=== PATIENT | male | born 1950 | race African-American/Black ===

== ENCOUNTER 2022-03-06 11:18 | Emergency (ER) | payer OTHER ==
[~2022-03-06] VITALS: Ht 172.7 cm; Wt 136.0 kg
[2022-03-06 11:23] VITALS: BP 109/61
[2022-03-06] MEDS ORDERED: ONDANSETRON HCL 4MG/2ML INJ IV STA (11:55)
[2022-03-06 13:02] LABS: BASOPHILS % 0.4 % (0.0-2.0); HEMOGLOBIN. 14.6 g/dL (14.0-18.0); LYMPHOCYTES % 16.5 % (20.0-50.0); MEAN CORPUSCULAR HEMOGLOBIN 29.1 pg (28.0-32.0); MEAN CORPUSCULAR VOLUME 89.7 fL (80.0-94.0); MEAN PLATELET VOLUME 9.2 fl (7.4-10.4); MONOCYTES % 5.6 % (2.0-8.0); NEUTROPHILS % 77.5 % (40.0-76.0); PLATELET 144 x1000/uL (130-400); RED BLOOD CELL COUNT 5.02 mill/uL (4.7-6.1); RED CELL DISTRIBUTION WIDTH 13.9 % (11.6-14.6)
[2022-03-06 13:07] LABS: CHLORIDE 108 mEq/L (98-107)
[2022-03-06 13:18] LABS: ETHANOL BLOOD < 10 mg/dL
[2022-03-06 14:34] LABS: CLARITY URINE CLOUDY (CLEAR); COLOR URINE YELLOW (YELLOW); KETONES URINE 1+ (NEGATIVE); LEUKOCYTE ESTERASE URINE NEGATIVE (NEGATIVE); NITRITE URINE NEGATIVE (NEGATIVE); OCCULT BLOOD URINE NEGATIVE (NEGATIVE); PH URINE 5.5 (4.5-8.0); PROTEIN URINE 1+ (NEGATIVE); SPECIFIC GRAVITY URINE 1.026 (1.005-1.030)
[2022-03-06 15:00] LABS: *AMPHETAMINES SCREEN URINE NEGATIVE (NEGATIVE); *BARBITURATES SCREEN URINE NEGATIVE (NEGATIVE); *BENZODIAZEPINES SCREEN URINE NEGATIVE (NEGATIVE); *COCAINE SCREEN URINE NEGATIVE (NEGATIVE); CANNABINOID URINE SCREEN NEGATIVE (NEGATIVE); METHADONE URINE SCREEN NEGATIVE (NEGATIVE); OPIATES URINE SCREEN NEGATIVE (NEGATIVE); PHENCYCLIDINE URINE SCREEN NEGATIVE (NEGATIVE)
== END 2022-03-06 17:37 | disposition home or self-care (01) ==
LOC: ER 11:18
DX: R55 Syncope and collapse (principal)
CPT/HCPCS: 36415; 71045; 80053; 80305; 80320; 81003; 83880; 84484; 85025; 99284; G0480